=== PATIENT | female | born 1950 | race Caucasian/White ===

== ENCOUNTER 2020-08-18 16:54 | Emergency (ER) | payer MEDICARE ==
--- NOTE | 2020-08-18 17:48 | ERPHSYRPT ---
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 walked in, resp easy, face mask in place, skin w/d/p, chest clear, no edema noted Physician History: 69 yo wf w mid-sternal chest pain starting 2 hours ago which resolved after 2 minutes. Pain was a 3 at max and has been pain free. Pain did not radiate, and she denies dyspnea/N/V/diaphoresis/cough/fever are also denied. Pain described as burning/pressure. She denies CAD/HI/DM/Tobacco use but has hyperl ipidemia/HTN. Timing/Duration: other (2 hours before arrival) Quality: pressure, other (burning) Location: substernal Chest Pain Radiation: no radiation Severity of Pain-Max: mild Severity of Pain-Current: none Modifying Factors: Worsens With: antacids, breathing, coughing, defecating, eating, exertion, lying down, morphine, movement, nitroglycerin, oxygen, palpation, rest, aspirin, sitting up, change in position Associated Symptoms: denies symptoms Prior Chest Pain/Cardiac Workup: no prior chest pain, no prior cardiac workup Nitro Today/Relief: no nitro taken today Aspirin Treatment Today: no aspirin today Allergies/Adverse Reactions: Penicillins Allergy (Verified 08/18/20 17:03) Home Medications: Amlodipine Besylate 5 mg [Norvasc 5 mg] 1 ea DAILY 08/18/20 [History] Atorvastatin Calcium 1 ea DAILY 08/18/20 [History] Ergocalciferol (Vitamin D2) [Vitamin D2] 25 mcg DAILY 08/18/20 [History] Metoprolol Succinate [Kapspargo Sprinkle] 25 mg pe DAILY 08/18/20 [History] Montelukast Sodium 10 mg [Singulair 10 MG] 1 ea DAILY 08/18/20 [History] Oxybutynin Chloride Xl 5 mg [Ditropan XL 5 MG] 1 ea DAILY 08/18/20 [History] Raloxifene HCl 1 ea DAILY 08/18/20 [History] Hx Influenza Vaccination/Date Given: Yes Hx Pneumococcal Vaccination/Date Given: Yes Immunizations Up to Date: Yes Travel Risk - International Travel Have you traveled outside of the country in past 3 weeks: No - Coronavirus Screening Are you exhibiting any of the following symptoms?: No Close contact with a COVID-19 positive Pt in past 14-21 Days: No - Vaccine Status Have you recieved a Covid-19 vaccination: Yes 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[employer] - Vaccination Dates Date of 2cond Vaccination (if applicable): apr - Review of Systems Constitutional: No Symptoms Eyes: No Symptoms Ears, Nose, & Throat: No Symptoms Respiratory: No Symptoms Cardiac: No Symptoms, Chest Pain Abdominal/Gastrointestinal: No Symptoms Genitourinary Symptoms: No Symptoms Musculoskeletal: No Symptoms Skin: No Symptoms Neurological: No Symptoms Psychological: No Symptoms Endocrine: No Symptoms Hematologic/Lymphatic: No Symptoms Immunological/Allergic: No Symptoms - Past Medical History Cardiac History: High Cholesterol, Hypertension - Past Surgical History Past Surgical History: Yes Musculoskeletal: Orthopedic Surgery Female Surgical History: Dilation & Curettage Other Surgical History: knee - Social History Smoking Status: Never smoker Exposure to second hand smoke: No Drug Use: none Patient Lives Alone: Yes Significant Family History: no pertinent family hx - Female History Hx Last Menstrual Period: post Hx Now: No - Nursing Vital Signs Nursing Vital Signs: Initial Vital Signs Temperature 97.3 F 08/18/20 16:55 Pulse Rate 76 08/18/20 16:55 Respiratory Rate 18 08/18/20 16:55 Blood Pressure 154/100 08/18/20 16:55 O2 Sat by Pulse Oximetry 96 08/18/20 16:55 Pain Scale Pain Intensity 0 Hypertensive - Physical Exam General Appearance: no apparent distress Eye Exam: PERRL/EOMI, eyes nml inspection Ears, Nose, Throat Exam: normal ENT inspection, TMs normal, pharynx normal Neck Exam: normal inspection, non-tender, supple, full range of motion, No meningismus, No mass, No Brudzinski, No Kernig's Respiratory Exam: normal breath sounds, lungs clear, airway intact, No chest tenderness, No respiratory distress Cardiovascular Exam: regular rate/rhythm, normal heart sounds, normal peripheral pulses, No murmur Gastrointestinal/Abdomen Exam: soft, normal bowel sounds, No tenderness Back Exam: normal inspection, normal range of motion, No CVA tenderness Extremity Exam: normal inspection, normal range of motion Neurologic Exam: alert, oriented x 3, cooperative, normal mood/affect, nml cerebellar function, nml station & gait, sensation nml, No motor deficits Skin Exam: normal color, warm, dry Lymphatic Exam: No adenopathy SpO2 Interpretation: normal SpO2: 96 O2 Delivery: Room Air - Course Nursing assessment & vital signs reviewed: Yes EKG Interpreted by Me: RATE (NSR/R73/Normal QT-QTc/Poor R wave progression/Flat T waves/No acute ST changes) - Radiology Exams Chest X-ray Interpretation: Interpreted by me (NAD) Ordered Tests: Active Orders 24 hr Category Date Time Status Hr Internship STAT Care 08/18/20 17:42 Completed EKG-ER Only STAT Care 08/18/20 17:41 Completed CHEST 1 VIEW (PORTABLE) Stat Exams 08/18/20 17:42 Taken CBC W DIFF Stat Lab 08/18/20 17:41 Completed CMP Stat Lab 08/18/20 17:41 Completed NT PRO BNP Stat Lab 08/18/20 17:41 Completed PROTIME WITH INR Stat Lab 08/18/20 18:02 Completed PTT Stat Lab 08/18/20 18:02 Completed TROPONIN Q3H Lab 08/18/20 17:45 Completed Lab/Rad Data: Laboratory Result Diagrams 08/18/20 17:41 08/18/20 17:41 Laboratory Results 08/18/20 08/18/20 08/18/20 Range/Units 18:02 17:45 17:41 WBC (4.0-10.5) K/mm3 RBC (4.1-5.4) M/mm3 Hgb (12.0-16.0) gm/dl Hct (35-47) % MCV (78-100) fl MCH (26-32) pg MCHC (32-36) g/dl RDW (11.5-14.0) % Plt Count (150-450) K/mm3 MPV (7.5-11.0) fl Gran % (36.0-66.0) % Eos # (Auto) (0-0.5) Absolute Lymphs (auto) (1.0-4.6) Absolute Monos (auto) (0.0-1.3) Lymphocytes % (24.0-44.0) % Monocytes % (0.0-12.0) % Eosinophils % (0.00-5.0) % Basophils % (0.0-0.4) % Absolute Granulocytes (1.4-6.9) Basophils # (0-0.4) PT 11.4 (9.95-12.35) SECONDS INR 1.01 (0.8-3.0) APTT 28.5 (25.3-37.0) SECONDS Sodium 139 (137-145) mmol/L Potassium 4.2 (3.5-5.1) mmol/L Chloride 106 (98-107) mmol/L Carbon Dioxide 26 (22-30) mmol/L Anion Gap 11.2 (5-15) MEQ/L BUN 17 (7-17) mg/dL Creatinine 0.95 (0.52-1.04) mg/dL Estimated GFR > 60.0 ML/MIN Glucose 87 (74-106) mg/dL Calcium 9.5 (8.4-10.2) mg/dL Total Bilirubin 0.20 (0.2-1.3) mg/dL AST 41 H (14-36) U/L ALT 45 H (0-35) U/L Alkaline Phosphatase 101 (38-126) U/L Troponin I < 0.012 (0.000-0.034) ng/mL NT-Pro-B Natriuret Pep 59.6 (0-900) pg/mL Serum Total Protein 6.9 (6.3-8.2) g/dL Albumin 4.3 (3.5-5.0) g/dL /10/01 Range/Units 17:41 WBC 7.3 (4.0-10.5) K/mm3 RBC 4.42 (4.1-5.4) M/mm3 Hgb 12.9 (12.0-16.0) gm/dl Hct 41.0 (35-47) % MCV 92.8 (78-100) fl MCH 29.2 (26-32) pg MCHC 31.5 L (32-36) g/dl RDW 13.0 (11.5-14.0) % Plt Count 229 (150-450) K/mm3 MPV 11.5 H (7.5-11.0) fl Gran % 54.6 (36.0-66.0) % Eos # (Auto) 0.09 (0-0.5) Absolute Lymphs (auto) 2.59 (1.0-4.6) Absolute Monos (auto) 0.62 (0.0-1.3) Lymphocytes % 35.6 (24.0-44.0) % Monocytes % 8.5 (0.0-12.0) % Eosinophils % 1.2 (0.00-5.0) % Basophils % 0.1 (0.0-0.4) % Absolute Granulocytes 3.96 (1.4-6.9) Basophils # 0.01 (0-0.4) PT (9.95-12.35) SECONDS INR (0.8-3.0) APTT (25.3-37.0) SECONDS Sodium (137-145) mmol/L Potassium (3.5-5.1) mmol/L Chloride (98-107) mmol/L Carbon Dioxide (22-30) mmol/L Anion Gap (5-15) MEQ/L BUN (7-17) mg/dL Creatinine (0.52-1.04) mg/dL Estimated GFR ML/MIN Glucose (74-106) mg/dL Calcium (8.4-10.2) mg/dL Total Bilirubin (0.2-1.3) mg/dL AST (14-36) U/L ALT (0-35) U/L Alkaline Phosphatase (38-126) U/L Troponin I (0.000-0.034) ng/mL NT-Pro-B Natriuret Pep (0-900) pg/mL Serum Total Protein (6.3-8.2) g/dL Albumin (3.5-5.0) g/dL - Progress Progress: improved Progress Note: 08/18/20 19:34 No chest pain in ER 08/18/20 22:31 Pt has appointment w PCP later this week 08/18/20 23:01 Heart Score 3 Counseled pt/family regarding: lab results, diagnosis, need for follow-up, rad results - Departure Departure Disposition: Home Clinical Impression: Chest pain Condition: Stable Critical Care Time: No Referrals: JONY RODRIGUEZ MD [Primary Care Provider] - Instructions: Chest Pain (DC) Additional Instructions: Follow up with your family MD SOL Return to ER for increasing pain or shortness of breath
[2020-08-18 17:50] LABS: Absolute Neutrophil Ct (ANC) 3.96 (1.4-6.9); BASOPHIL % 0.1 % (0.0-0.4); Basophil (Absolute #) 0.01 (0-0.4); Eosinophil % 1.2 % (0.00-5.0); Eosinophil (Absolute #) 0.09 (0-0.5); Hemoglobin 12.9 gm/dl (12.0-16.0); Lymphocyte (Absolute #) 2.59 (1.0-4.6); Lymphocytes % 35.6 % (24.0-44.0); Mean Cell Volume 92.8 fl (78-100); Mean Corpuscular Hemoglobin 29.2 pg (26-32); Mean Corpuscular Hgb Concent. 31.5 g/dl (32-36); Mean Platelet Volume 11.5 fl (7.5-11.0); Monocyte (Absolute #) 0.62 (0.0-1.3); Monocytes % 8.5 % (0.0-12.0); Neutrophil % 54.6 % (36.0-66.0); Platelet Count 229 K/mm3 (150-450); Red Blood Count 4.42 M/mm3 (4.1-5.4); White Blood Count 7.3 K/mm3 (4.0-10.5)
[2020-08-18 18:00] LABS: Potassium 4.2 mmol/L (3.5-5.1)
[2020-08-18 18:07] LABS: ALBUMIN 4.3 g/dL (3.5-5.0); ALKALINE PHOSPHATASE 101 U/L (38-126); BLOOD UREA NITROGEN 17 mg/dL (7-17); CHLORIDE 106 mmol/L (98-107); Calcium 9.5 mg/dL (8.4-10.2); Carbon Dioxide 26 mmol/L (22-30); Creatinine 1 0.95 mg/dL (0.52-1.04); EST GLOMERULAR FILTRATION RATE > 60.0 ML/MIN; Glucose 87 mg/dL (74-106); NT PRO BNP 59.6 pg/mL (0-900); SGOT/AST 41 U/L (14-36); SGPT/ALT 45 U/L (0-35); SODIUM 139 mmol/L (137-145); Total Protein 6.9 g/dL (6.3-8.2)
[2020-08-18 18:17] LABS: ANION GAP 11.2 MEQ/L (5-15)
[2020-08-18 18:20] LABS: INR 1.01 (0.8-3.0); PROTIME 11.4 SECONDS (9.95-12.35)
[2020-08-18 18:22] LABS: PTT 28.5 SECONDS (25.3-37.0)
[2020-08-18 19:43] VITALS: BP 164/91; PULSE 71
[2020-08-18 22:32] VITALS: O2SAT 96
--- NOTE | 2020-08-19 08:44 | XRAY ---
Indication: Chest pain. High blood pressure. Comparison: July 14, 2008. Portable chest again demonstrates normal heart and lungs with incidental left mid lung calcified granuloma. Bony thorax intact again with mild dextroscoliosis. No new/acute findings.
== END 2020-08-18 19:44 | disposition home or self-care (01) ==
LOC: ED 16:54
DX: R07.9 Chest pain, unspecified (principal); Z79.899 Other long term (current) drug therapy; I10 Essential (primary) hypertension; E78.00 Pure hypercholesterolemia, unspecified
CPT/HCPCS: 36000; 36415; 71045; 80053; 83880; 84484; 85025; 85610; 85730; 93005; 93041; 99284

== ENCOUNTER 2022-11-28 13:13 | Emergency (ER) | payer MEDICARE ==
[2022-11-28 13:35] VITALS: TEMP 97.9; O2SAT 96
[2022-11-28] MEDS ORDERED: XYLOCAINE 1% HCL 20 ML MDV IJ ONE (13:42)
--- NOTE | 2022-11-28 14:08 | ERPHSYRPT ---
- History of Present Illness Time Seen by Provider: 11/28/22 13:30 Source: patient Exam Limitations: no limitations Patient Subjective Stated Complaint: Pt cut her left 2nd finger with a paring knife Triage Nursing Assessment: Pt brought self to the ER, vitals wnl, denies pain, left hand 2nd finger 1cm laceration just above the bottom joint, pulses normal, able to move finger with no issues, doesn't appear to be in any distress Physician History: Patient cut her left index finger and was not able get the wound to stop bleeding as a gapes open with just direct pressure so she came to emergency room for further evaluation. Timing/Duration: hour(s) (1) Severity: mild Location: other (Top of the left index finger) Possible Causes: other (Cut it with a paring knife) Modifying Factors: Worsens With: other (Movement) Associated Symptoms: denies symptoms, No difficulty breathing, No fever, No paresthesia, No tingling Allergies/Adverse Reactions: Penicillins Allergy (Verified 11/28/22 13:35) Home Medications: Atorvastatin Calcium 10 mg PO DAILY 08/18/20 [History] Ergocalciferol (Vitamin D2) [Vitamin D2] 25 mcg PO DAILY 08/18/20 [History] Montelukast Sodium 10 mg [Singulair 10 MG] 1 ea DAILY 08/18/20 [History] Oxybutynin Chloride Xl 5 mg [Ditropan XL 5 MG] 5 mg PO DAILY 08/18/20 [History] Raloxifene HCl 60 mg PO DAILY 08/18/20 [History] Diltiazem HCl [Dilt-Xr] 120 mg PO DAILY 11/28/22 [History] Hx Tetanus, Diphtheria Vaccination/Date Given: Yes (year or two ago) Hx Influenza Vaccination/Date Given: Yes Hx Pneumococcal Vaccination/Date Given: Yes Travel Risk - International Travel Have you traveled outside of the country in past 3 weeks: No - Coronavirus Screening Are you exhibiting any of the following symptoms?: No Close contact with a COVID-19 positive Pt in past 14-21 Days: No - Vaccine Status Have you recieved a Covid-19 vaccination: 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: [employer] - Vaccination Dates Date of 2cond Vaccination (if applicable): apr - Review of Systems Constitutional: No Fever, No Chills Eyes: No Symptoms, No Eye Pain, No Vision Changes Ears, Nose, & Throat: No Symptoms, No Epistaxis, No Mouth Pain Respiratory: No Cough, No Dyspnea Cardiac: No Chest Pain, No Edema, No Syncope Abdominal/Gastrointestinal: No Abdominal Pain, No Nausea, No Vomiting, No Diarrhea Genitourinary Symptoms: No Flank Pain Musculoskeletal: No Back Pain, No Neck Pain Skin: No Rash Neurological: No Dizziness, No Focal Weakness, No Sensory Changes Psychological: No Symptoms Endocrine: No Symptoms All Other Systems: Reviewed and Negative - Past Medical History Pertinent Past Medical History: Yes Cardiac History: High Cholesterol, Hypertension - Past Surgical History Past Surgical History: Yes Musculoskeletal: Orthopedic Surgery Female Surgical History: Dilation & Curettage Other Surgical History: knee - Social History Smoking Status: Never smoker Exposure to second hand smoke: No Drug Use: none Patient Lives Alone: Yes Significant Family History: no pertinent family hx - Nursing Vital Signs Nursing Vital Signs: Initial Vital Signs Temperature 97.9 F 11/28/22 13:28 Pulse Rate 78 11/28/22 13:28 Blood Pressure 142/84 11/28/22 13:28 O2 Sat by Pulse Oximetry 96 11/28/22 13:28 Pain Scale Pain Intensity 0 - Physical Exam General Appearance: no apparent distress, alert Eye Exam: PERRL/EOMI, eyes nml inspection Ears, Nose, Throat Exam: normal ENT inspection, pharynx normal, moist mucous membranes Neck Exam: normal inspection, non-tender, supple, full range of motion Respiratory Exam: normal breath sounds, lungs clear, No respiratory distress Cardiovascular Exam: regular rate/rhythm, normal heart sounds Gastrointestinal/Abdomen Exam: soft, No tenderness Back Exam: normal inspection, normal range of motion, No CVA tenderness, No vertebral tenderness Extremity Exam: normal inspection, normal range of motion Neurologic Exam: alert, oriented x 3, cooperative, 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, normal mood/affect, sensation nml, No motor deficits Skin Exam: normal color, warm, dry, laceration (Left second digit: Dorsum of the proximal phalanx has 1.5 cm subcutaneous laceration, no underlying involvement of tendon, vascular, osseous or nerve structures appreciated; no foreign bodies, minimal active bleeding; No other open wounds anywhere else), No rash, No jaundice SpO2 Interpretation: normal SpO2: 96 O2 Delivery: Room Air Procedures - Laceration/Wound Repair Left Dorsal Finger Time of Procedure: 13:50 Wound Location: Left Wound Length (cm): 1.5 Wound's Depth, Shape: superficial Wound Explored: clean Irrigated: Yes Anesthesia: 1% Lidocaine Volume Anesthetic (ccs): 2 Wound Repaired With: sutures Suture Size/Type: 4-0 Number of Sutures: 4 Layer Closure?: No Sterile Dressing Applied?: Yes Splint Applied?: No Sling Applied?: No - Course Nursing assessment & vital signs reviewed: Yes Ordered Tests: Active Orders 24 hr Category Date Time Status Dressing Care ROUTINE Care 11/28/22 14:08 Completed Medication Summary Discontinued Medications Generic Name Dose Route Start Last Admin Trade Name Paola PRN Reason Stop Dose Admin Lidocaine HCl 10 ml 11/28/22 13:42 11/28/22 13:49 Lidocaine Hcl 1% 20 Ml Mdv 20 Ml Ml IJ 11/28/22 13:43 10 ml STAT ONE Administration - Progress Progress: improved Progress Note: 11/28/22 14:08 Patient has closed, dry and intact laceration site to the left index finger after 4 sutures with no further bleeding 11/28/22 14:13 Patient 69-year-old female who cut the dorsum of the left index finger on the proximal phalanx approximately 1 hour prior to coming the emergency room with a paring knife. She was not able to get the bleeding stopped when she moved her finger, so she came in for further evaluation. Patient had a 1.5 superficial laceration to the dorsum of her left index finger, with no other lacerations anywhere else and no loss of function to flexion extension adduction and abduction of the left index finger, so after informed consent was obtained, wound was cleaned, local anesthetic was used 1% lidocaine of 2 mL and 4 interrupted 4-0 Ethilon sutures were used to reapproximate the wound edges so no further opening would be occurring when she moves her finger and therefore no further bleeding. Patient tolerated procedure very well, was neurovascular intact with full function of the left second digit after placement of the 4 sutures and patient did not require tetanus booster at this time as she was up-to-date per her history. Patient is to follow-up in 10 days to remove the 4 sutures. Wound care was reviewed with the patient. Reviewed with patient what signs and symptoms to return back to the nearest emergency room including any opening of the wound, any bleeding from the wound, new erythema proximally or distally from the left index finger, new loss of function of the left index finger, new loss sensation to the left index finger, new loss of strength of left index finger or any other concerning signs or symptoms that were not present at today's emergency room visit for immediate reevaluation in the nearest emergency department Counseled pt/family regarding: diagnosis, need for follow-up - Departure Departure Disposition: Home Clinical Impression: Elevated blood pressure reading without diagnosis of hypertension Laceration of left index finger Qualifiers: Encounter type: initial encounter Damage to nail status: without damage Foreign body presence: without foreign body Qualified Code(s): S61.211A - Laceration without foreign body of left index finger without damage to nail, initial encounter Condition: Good Critical Care Time: No Referrals: JONY RODRIGUEZ MD [Primary Care Provider] - Follow up PCP 10 days (to remove 4 sutures in your left index finger) Instructions: DASH Diet, Laceration Repair With Stitches (DC) Additional Instructions: Return back to the nearest emergency room if you have any bleeding from your laceration site, any redness or swelling to your finger, loss sensation or strength or function to your finger, any fever or any other concerning signs or symptoms that were not present at today's emergency room visit for immediate reevaluation in the nearest emergency department
[2022-11-28 14:17] VITALS: BP 152/97; PULSE 77
== END 2022-11-28 14:17 | disposition home or self-care (01) ==
LOC: ED 13:13
DX: S61.211A Laceration without foreign body of left index finger without damage to nail, initial encounter (principal); W26.0XXA Contact with knife, initial encounter; I10 Essential (primary) hypertension; E78.5 Hyperlipidemia, unspecified; Z79.899 Other long term (current) drug therapy
CPT/HCPCS: 12001; 96372; 99283

== ENCOUNTER 2023-06-06 17:27 | Emergency (ER) | payer MEDICARE ==
--- NOTE | 2023-06-06 17:41 | ERPHSYRPT ---
- History of Present Illness Time Seen by Provider: 06/06/23 17:41 Source: patient, family Exam Limitations: no limitations Physician History: This is a 72-year-old white female patient who drove herself to the emergency department after suffering an accidental laceration to the first webspace left hand. Patient is right-handed. Patient was putting banks on her 's grave when she accidentally cut herself. Patient reports that her tetanus status is up-to-date. Patient is not on any blood thinning medication. Quality: painful Severity: mild Location: hands (Left hand first webspace) Modifying Factors: Improves With: other (Thing) Associated Symptoms: denies symptoms Allergies/Adverse Reactions: Penicillins Allergy (Verified 06/06/23 17:45) Home Medications: Atorvastatin Calcium 10 mg PO DAILY 08/18/20 [History] Ergocalciferol (Vitamin D2) [Vitamin D2] 25 mcg PO DAILY 08/18/20 [History] Montelukast Sodium 10 mg [Singulair 10 MG] 1 ea DAILY 08/18/20 [History] Oxybutynin Chloride Xl 5 mg [Ditropan XL 5 MG] 5 mg PO DAILY 08/18/20 [History] Raloxifene HCl 60 mg PO DAILY 08/18/20 [History] Diltiazem HCl [Dilt-Xr] 120 mg PO BID 11/28/22 [History] Acyclovir 400 mg PO BID PRN 06/06/23 [History] Losartan Potassium [Cozaar] 25 mg PO DAILY 06/06/23 [History] Solifenacin Succinate 5 mg PO DAILY 06/06/23 [History] estradioL [Estradiol] 0.5 mg VAG WEEKLY 06/06/23 [History] Hx Tetanus, Diphtheria Vaccination/Date Given: Yes (year or two ago) Hx Influenza Vaccination/Date Given: Yes Hx Pneumococcal Vaccination/Date Given: Yes Travel Risk - International Travel Have you traveled outside of the country in past 3 weeks: No - Emerging Infectious Disease Are you exhibiting symptoms associated with any current EIDs: No - Review of Systems Constitutional: No Symptoms Eyes: No Symptoms Ears, Nose, & Throat: No Symptoms Respiratory: No Symptoms Cardiac: No Symptoms Abdominal/Gastrointestinal: No Symptoms Genitourinary Symptoms: No Symptoms Musculoskeletal: No Symptoms Skin: Other (Laceration first webspace left hand) Neurological: No Symptoms Psychological: No Symptoms Endocrine: No Symptoms Hematologic/Lymphatic: No Symptoms Immunological/Allergic: No Symptoms All Other Systems: Reviewed and Negative - Past Medical History Pertinent Past Medical History: Yes Neurological History: No Pertinent History ENT History: No Pertinent History Cardiac History: High Cholesterol, Hypertension Respiratory History: No Pertinent History Endocrine Medical History: No Pertinent History Musculoskeletal History: No Pertinent History GI Medical History: No Pertinent History History: No Pertinent History Psycho-Social History: No Pertinent History Female Reproductive Disorders: No Pertinent History - Past Surgical History Past Surgical History: Yes Neuro Surgical History: No Pertinent History Cardiac: No Pertinent History Respiratory: No Pertinent History Gastrointestinal: No Pertinent History Genitourinary: No Pertinent History Musculoskeletal: Orthopedic Surgery Female Surgical History: Dilation & Curettage Other Surgical History: knee Significant Family History: no pertinent family hx - Social History Smoking Status: Never smoker Exposure to second hand smoke: No Drug Use: none Patient Lives Alone: Yes - Nursing Vital Signs Nursing Vital Signs: Initial Vital Signs Temperature 98.3 F 06/06/23 17:34 Pulse Rate 95 H 06/06/23 17:34 Blood Pressure 171/118 06/06/23 17:34 O2 Sat by Pulse Oximetry 94 L 06/06/23 17:34 Pain Scale Pain Intensity 2 - Physical Exam General Appearance: no apparent distress, alert, anxiety Eye Exam: PERRL/EOMI, eyes nml inspection Ears, Nose, Throat Exam: normal ENT inspection, moist mucous membranes Neck Exam: normal inspection, non-tender, supple, full range of motion Respiratory Exam: airway intact, No chest tenderness, No respiratory distress Gastrointestinal/Abdomen Exam: No tenderness Pelvic Exam: not done Rectal Exam: not done Back Exam: normal inspection, normal range of motion, No CVA tenderness, No vertebral tenderness Extremity Exam: normal range of motion, pelvis stable, lacerations (1 cm superficial skin laceration left hand first webspace. No active bleeding mild ooze from the skin edge. No foreign body appreciated), other (Patient is neurovascularly intact. 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, normal mood/affect, nml cerebellar function, nml station & gait, sensation nml Skin Exam: normal color, warm, laceration (See above left hand description) Lymphatic Exam: No adenopathy SpO2 Interpretation: normal O2 Delivery: Room Air Procedures - Laceration/Wound Repair Left Hand Time of Procedure: 17:50 Wound Location: Left, hand (First webspace) Wound Length (cm): 1 Wound's Depth, Shape: superficial, linear Wound Explored: clean (Wound explored to the base in a bloodless field and no foreign body noted.) Irrigated: Yes Hibiclens Prep: Yes Wound Repaired With: Steri-strips, Dermabond - Course Nursing assessment & vital signs reviewed: Yes - Progress Progress: improved Progress Note: 06/06/23 17:59 This patient's medical issue is 1 of low complexity. The level of complexity and the workup performed is based on review of the patient's past medical history, review the patient's medication list, review patient drug allergy list, history present illness and physical findings on examination. This patient's workup does not require laboratory radiographic studies. Counseled pt/family regarding: diagnosis Medical Desision Making - Diagnostic Testing Diagnostic test were ordered, analyzed, and reviewed by me: No - Risk of complications Minimal Risk: Minimal risk of morbidity - Departure Departure Disposition: Home Clinical Impression: Laceration of left hand Condition: Stable Critical Care Time: No Referrals: JONY RODRIGUEZ MD [Primary Care Provider] - Follow up/PCP as directed Additional Instructions: Leave pressure dressing on until 9 PM on 06/07/2023. At that time you can take the pressure dressing off and may rinse your hand off once a day with soapy water. Blot dry or use a astronomy department chair. Leave the Steri-Strips in place. As they curl up trim them.
[2023-06-06 17:45] VITALS: BP 171/118; PULSE 95; TEMP 98.3; O2SAT 94
== END 2023-06-06 18:09 | disposition home or self-care (01) ==
LOC: ED 17:27
DX: S61.412A Laceration without foreign body of left hand, initial encounter (principal); E78.5 Hyperlipidemia, unspecified; I10 Essential (primary) hypertension; Z79.899 Other long term (current) drug therapy
CPT/HCPCS: 12001; 99281

== ENCOUNTER 2023-10-17 21:00 | Emergency (ER) | payer MEDICARE ==
[2023-10-17 22:53] VITALS: TEMP 98.1
--- NOTE | 2023-10-17 23:12 | ERPHSYRPT ---
- History of Present Illness Time Seen by Provider: 10/17/23 22:55 Source: patient Exam Limitations: no limitations Patient Subjective Stated Complaint: fall getting out of bath tub- pt hit the L side of her ribs on the side of the tub Triage Nursing Assessment: pt ambulatory to bed by self with family at bedside, pt alert and oriented x3, skin pwd, pt c/o L rib pain d/t fall this evening around 1999. pt fell getting out of bath tub and hit ribs on the bath tub Occurred: just prior to arrival Reason for Fall: lost balance Injuries/Pain Location: chest Loss of Consciousness: no loss of consciousness Quality: aching, burning, fullness, sharpness, stabbing Severity of Pain-Max: mild Severity of Pain-Current: mild Modifying Factors: Improves With: movement Associated Symptoms (Fall): denies symptoms Allergies/Adverse Reactions: Penicillins Allergy (Verified 10/17/23 22:45) Home Medications: Atorvastatin Calcium 10 mg PO DAILY 08/18/20 [History] Ergocalciferol (Vitamin D2) [Vitamin D2] 25 mcg PO DAILY 08/18/20 [History] Montelukast Sodium 10 mg [Singulair 10 MG] 1 ea PO HS PRN 08/18/20 [History] Raloxifene HCl 60 mg PO DAILY 08/18/20 [History] dilTIAZem HCL [Dilt-Xr] 120 mg PO BID 11/28/22 [History] Acyclovir 400 mg PO BID PRN 06/06/23 [History] Solifenacin Succinate 5 mg PO DAILY 06/06/23 [History] estradioL [Estradiol] 0.5 mg VAG WEEKLY 06/06/23 [History] Calcium Carbonate [Calcium] 600 mg PO DAILY 10/17/23 [History] Hx Tetanus, Diphtheria Vaccination/Date Given: Yes Hx Influenza Vaccination/Date Given: Yes Hx Pneumococcal Vaccination/Date Given: Yes Immunizations Up to Date: Yes Travel Risk - International Travel Have you traveled outside of the country in past 3 weeks: No - Emerging Infectious Disease Are you exhibiting symptoms associated with any current EIDs: No - Review of Systems Eyes: No Symptoms Ears, Nose, & Throat: No Symptoms Respiratory: Other (Patient has left-sided chest wall pain and pain under her left breast) Cardiac: No Symptoms Abdominal/Gastrointestinal: No Symptoms Genitourinary Symptoms: No Symptoms Musculoskeletal: Other Skin: No Symptoms Neurological: No Symptoms - Past Medical History Pertinent Past Medical History: Yes Neurological History: No Pertinent History ENT History: No Pertinent History Cardiac History: High Cholesterol, Hypertension Respiratory History: No Pertinent History Endocrine Medical History: No Pertinent History Musculoskeletal History: Arthritis GI Medical History: GERD, Ulcer History: No Pertinent History Psycho-Social History: No Pertinent History Female Reproductive Disorders: No Pertinent History - Past Surgical History Past Surgical History: Yes Neuro Surgical History: No Pertinent History Cardiac: No Pertinent History Respiratory: No Pertinent History Gastrointestinal: No Pertinent History Genitourinary: No Pertinent History Musculoskeletal: Orthopedic Surgery Female Surgical History: Dilation & Curettage Other Surgical History: knee Significant Family History: no pertinent family hx - Social History Smoking Status: Never smoker Exposure to second hand smoke: No Drug Use: none Patient Lives Alone: Yes - Social Determinants of Health Will the patient participate in the screening: Declined to provide - Nursing Vital Signs Nursing Vital Signs: Initial Vital Signs Temperature 98.1 F 10/17/23 22:45 Pulse Rate 89 10/17/23 22:45 Respiratory Rate 18 10/17/23 22:45 Blood Pressure 173/86 10/17/23 22:45 O2 Sat by Pulse Oximetry 96 10/17/23 22:45 Pain Scale Pain Intensity 3 - Duke Coma Score Best Eye Response ([place]uke): (4) open spontaneously Best Verbal Response ([place]): (5) oriented Best Motor Response ([place]): (6) obeys commands [place] Total: 15 - Physical Exam General Appearance: no apparent distress Head Injury: no evidence of injury Eye Exam: PERRL/EOMI Respiratory/Chest Exam: chest tenderness, other (She is tender over the left lateral chest wall) Cardiovascular Exam: normal heart sounds Gastrointestinal Exam: soft SpO2: 96 Ordered Tests: Active Orders 24 hr Category Date Time Status CHEST WITHOUT CONTRAST [CT] Stat Exams 10/18/23 00:00 Completed - Progress Progress Note: Patient was seen and evaluated for left chest wall pain after a fall she was offered analgesia but refused at this time as she states she does not have pain unless she moves. The chest will be ordered and she will be treated appropriately 10/17/23 23:11 10/18/23 01:47 There is no definite mass lesion in the chest wall. IMPRESSION: 1. No evidence of pneumothorax or traumatic rib cage injury. 2. Focal subpleural haziness is seen in medial basal segment of right lower lobe. Appears to be nonspecific, possibility of pulmonary contusion cannot be excluded in view of the history of trauma 3. A 6 mm calcified nodule and 4 mm solid nodule in the superior segment of left lower lobe. Low risk as per Fleischner Society guidelines, no follow-up required Patient was updated with the results of her CT scan she was informed of the need to apply ice to the affected area and use Tylenol and Motrin as needed and follow-up with a primary care provider Medical Desision Making - Discussion of managment Agreed on:: need for follow-up - Departure Clinical Impression: Contusion of left chest wall Condition: Stable Critical Care Time: No Instructions: Rib Fracture (DC), Bruised Rib
--- NOTE | 2023-10-18 01:15 | XRAY ---
CLINICAL HISTORY: fall COMPARISON: None. TECHNIQUE: Contiguous 3.[address] images of the chest were acquired without administration of intravenous contrast. Coronal and sagittal reconstructions were obtained. One of the following dose reduction techniques was utilized for this exam. Automated exposure control, adjustment of the mA and/or kV according to patient size, use of iterative reconstruction. Total; CTDI; 5.81mGy, DLP: 248.21mGy*cm. FINDINGS: No evidence of pneumothorax or traumatic rib cage injury. A 6 mm calcified nodule and 4 mm solid nodule in the superior segment of left lower lobe Focal subpleural haziness is seen in the medial basal segment of right lower lobe. Appears to be nonspecific, possibility of pulmonary contusion cannot be excluded in view of history of trauma. No free or encysted pleural effusion. Heart size is normal, and there is no pericardial effusion. No pathologically enlarged mediastinal, hilar or axillary lymph node is identified. Mild dextroscoliosis of thoracic spine with degenerative changes. There is no definite mass lesion in the chest wall. IMPRESSION: 1. No evidence of pneumothorax or traumatic rib cage injury. 2. Focal subpleural haziness is seen in medial basal segment of right lower lobe. Appears to be nonspecific, possibility of pulmonary contusion cannot be excluded in view of the history of trauma 3. A 6 mm calcified nodule and 4 mm solid nodule in the superior segment of left lower lobe. Low risk as per Fleischner Society guidelines, no follow-up required Electronically Signed by: Austin Rose MD. (10/18/2023 01:12:10 EDT)
[2023-10-18 02:14] VITALS: BP 151/75; PULSE 98; RESP 15; O2SAT 98
[2023-10-18] MEDS ORDERED: NORCO 5/325 MG ONE (02:18)
[2023-10-18] MEDS ORDERED: Valium 5 MG ONE (02:18)
[2023-10-18] MEDS: NORCO 5/325 MG PO ONE (02:19)
[2023-10-18] MEDS: Valium 5 MG PO ONE (02:20)
== END 2023-10-18 02:28 | disposition home or self-care (01) ==
LOC: ED 21:00
DX: S20.212A Contusion of left front wall of thorax, initial encounter (principal); W18.2XXA Fall in (into) shower or empty bathtub, initial encounter; Y93.E1 Activity, personal bathing and showering; Y92.002 Bathroom of unspecified non-institutional (private) residence as the place of occurrence of the external cause; E78.5 Hyperlipidemia, unspecified; I10 Essential (primary) hypertension; Z79.899 Other long term (current) drug therapy
CPT/HCPCS: 71250; 99283; A9270-GY